=== PATIENT | female | born 1980 | race Caucasian/White ===

== ENCOUNTER 2021-10-26 02:54 | Emergency (ER) | payer OTHER ==
[~2021-10-26 02:54] MED LIST: OMNICEF 300 MG300 MG PO
[2021-10-26 03:23] LABS: HEMOGLOBIN 13.8 gm/dl (12.3-15.3); RED BLOOD COUNT 4.59 M/UL (4.00-5.10)
[2021-10-26 03:30] LABS: BUN/CREATININE RATIO 11 (0-10)
[2021-10-26] MEDS ORDERED: PROAIR DIGIHAL90 MCG INH (04:00)
[2021-10-26] MEDS ORDERED: ZOFRAN ODT 4 MG4 MG GT (04:00)
[2021-10-26] MEDS ORDERED: BENZONATATE100 MG PO (04:00)
== END 2021-10-26 04:15 | disposition home or self-care (01) ==
LOC: ER1 02:54
PROVIDERS: Emergency Medicine
DX: U07.1 COVID-19 (principal); J10.1 Influenza due to other identified influenza virus with other respiratory manifestations; F17.210 Nicotine dependence, cigarettes, uncomplicated
CPT/HCPCS: 71045; 80048; 81001; 83605; 85025; 93005; 94664; 94760; 96374; 99284

== ENCOUNTER 2021-11-24 19:01 | Emergency (ER) | payer OTHER ==
[~2021-11-24 19:01] MED LIST changes: +BENZONATATE100 MG PO; +PROAIR DIGIHAL90 MCG INH; +ZOFRAN ODT 4 MG4 MG GT
[2021-11-24 20:03] LABS: HEMOGLOBIN 13.6 gm/dl (12.3-15.3); RED BLOOD COUNT 4.42 M/UL (4.00-5.10); WHITE BLOOD COUNT 7.3 K/UL (4.5-11.0)
[2021-11-24 20:29] LABS: BUN/CREATININE RATIO 13 (0-10)
== END 2021-11-24 22:16 | disposition home or self-care (01) ==
LOC: ER1 19:01
PROVIDERS: Student in an Organized Health Care Education/Training Program
DX: I47.9 Paroxysmal tachycardia, unspecified (principal)
CPT/HCPCS: 71045; 80048; 82550; 82553; 84439; 84443; 84484; 85025; 93005; 99285

== ENCOUNTER → 2022-01-05 | Outpatient (CLI) | payer OTHER | LOC: ECHO 08:30 | DX: I47.1 Supraventricular tachycardia (principal); I08.1 Rheumatic disorders of both mitral and tricuspid valves | CPT/HCPCS: ECHO; 93306 ==

== ENCOUNTER → 2022-01-12 | Outpatient (CLI) | payer OTHER ==
[~2022-01-12] MED LIST changes: +AMPHETAMINE SALT5 MG PO; +BUPRENORPHN-NA1 EACH SL; +VYVANSE20 MG PO
[2022-01-12 09:24] LABS: HEMOGLOBIN 14.6 gm/dl (12.3-15.3); RED BLOOD COUNT 4.79 M/UL (4.00-5.10); WHITE BLOOD COUNT 5.4 K/UL (4.5-11.0)
[2022-01-12 09:45] LABS: BUN/CREATININE RATIO 11 (0-10)
== END ==
LOC: LAB 08:45
PROVIDERS: Internal Medicine Cardiovascular Disease
DX: I47.1 Supraventricular tachycardia (principal)
CPT/HCPCS: 36415; 71046; 80048; 85025